=== PATIENT | female | born 1960 | race Caucasian/White ===

== ENCOUNTER 2020-12-16 12:25 | Emergency (ER) | payer BC ==
[~2020-12-16] VITALS: Ht 160 cm; Wt 75.8 kg
[2020-12-16] MEDS ORDERED: OMEP20ER PO (12:36)
[2020-12-16] MEDS ORDERED: LATA.005SO BOTHEYES (12:36)
== END 2020-12-16 17:15 | disposition home or self-care (01) ==
LOC: ER 12:25
DX: T84.021A Dislocation of internal left hip prosthesis, initial encounter (principal); Z88.0 Allergy status to penicillin; Z79.899 Other long term (current) drug therapy; Z96.642 Presence of left artificial hip joint; X50.1XXA Overexertion from prolonged static or awkward postures, initial encounter; Y93.H2 Activity, gardening and landscaping
CPT/HCPCS: 36415; 73501; 73502; J1170; J2704; J3010; J7030

== ENCOUNTER 2023-02-01 18:33 | Observation (INO) | payer BC ==
[~2023-02-01] VITALS: Ht 170.2 cm; Wt 79.0 kg
[~2023-02-01 18:33] MED LIST: IBUP200; LATA.005SO BOTHEYES; OMEP20ER PO
[2023-02-02] VITALS (16 sets, daily range): BP systolic 111–141; BP diastolic 54–74
[2023-02-02 00:12] LABS: BASOPHILS ABSOLUTE AUTO 0.02 K/mm3 (0.00-0.23); BASOPHILS PERCENT AUTO 0 % (0-2); EOSINOPHILS ABSOLUTE AUTO 0.01 K/mm3 (0.00-0.68); EOSINOPHILS PERCENT AUTO 0 % (0-6); Hematocrit 40.1 % (33.0-51.0); Hemoglobin 13.5 g/dL (11.5-16.0); IMMATURE GRAN ABSOLUTE AUTO 0.02 K/mm3 (0.00-0.10); IMMATURE GRAN PERCENT AUTO 0 % (0-1); LYMPHOCYTES ABSOLUTE AUTO 1.32 K/mm3 (0.84-5.20); LYMPHOCYTES PERCENT AUTO 14 % (21-46); MONOCYTES ABSOLUTE AUTO 0.21 K/mm3 (0.16-1.47); MONOCYTES PERCENT AUTO 2 % (4-13); Mean Corpuscular HGB 29.2 pg (26.0-34.0); Mean Corpuscular HGB Conc 33.7 g/dL (31.5-36.5); Mean Corpuscular Volume 87 fL (80-100); Mean Platelet Volume 12.3 fL (9.1-12.4); NEUTROPHILS ABSOLUTE AUTO 7.92 K/mm3 (1.96-9.15); NEUTROPHILS PERCENT AUTO 83 % (41-73); Platelet Count 156 K/mm3 (150-400); RDW Coefficient Variation 13.4 % (11.7-14.2); RDW Standard Deviation 41.8 fL (35.1-46.3); Red Blood Cell Count 4.62 M/mm3 (3.80-5.20)
[2023-02-02 00:32] LABS: Albumin, Blood 3.5 g/dL (3.4-5.0); Albumin/Globulin Ratio 1.1 (0.8-1.8); Bilirubin, Total 0.2 mg/dL (0.1-1.0); Bun/Creatinine Ratio 20.2 (12.0-20.0); Calcium, Blood 8.2 mg/dL (8.5-10.1); Creatinine, Blood 0.79 mg/dL (0.40-1.00); Globulin, Blood 3.1 g/dL (2.2-4.0); Potassium, Blood 3.7 mmol/L (3.5-5.5); Total Protein, Blood 6.6 g/dL (6.4-8.2)
[2023-02-02] MEDS ORDERED: PROG100 (03:00)
[2023-02-02] MEDS ORDERED: LATANOPROST2.5 M3 (03:00)
[2023-02-02 09:07] LABS: BASOPHILS ABSOLUTE AUTO 0.02 K/mm3 (0.00-0.23); BASOPHILS PERCENT AUTO 0 % (0-2); EOSINOPHILS ABSOLUTE AUTO 0.02 K/mm3 (0.00-0.68); EOSINOPHILS PERCENT AUTO 0 % (0-6); Hematocrit 39.6 % (33.0-51.0); Hemoglobin 13.4 g/dL (11.5-16.0); IMMATURE GRAN ABSOLUTE AUTO 0.03 K/mm3 (0.00-0.10); IMMATURE GRAN PERCENT AUTO 0 % (0-1); LYMPHOCYTES ABSOLUTE AUTO 1.88 K/mm3 (0.84-5.20); LYMPHOCYTES PERCENT AUTO 17 % (21-46); MONOCYTES ABSOLUTE AUTO 0.73 K/mm3 (0.16-1.47); MONOCYTES PERCENT AUTO 7 % (4-13); Mean Corpuscular HGB 28.9 pg (26.0-34.0); Mean Corpuscular HGB Conc 33.8 g/dL (31.5-36.5); Mean Corpuscular Volume 85 fL (80-100); Mean Platelet Volume 12.2 fL (9.1-12.4); NEUTROPHILS ABSOLUTE AUTO 8.43 K/mm3 (1.96-9.15); NEUTROPHILS PERCENT AUTO 76 % (41-73); Platelet Count 173 K/mm3 (150-400); RDW Coefficient Variation 13.5 % (11.7-14.2); RDW Standard Deviation 42.3 fL (35.1-46.3); Red Blood Cell Count 4.64 M/mm3 (3.80-5.20); White Blood Cell Count 11.11 K/mm3 (4.00-11.30)
[2023-02-02 09:24] LABS: Albumin, Blood 3.5 g/dL (3.4-5.0); Albumin/Globulin Ratio 1.2 (0.8-1.8); Bilirubin, Total 0.3 mg/dL (0.1-1.0); Bun/Creatinine Ratio 20.9 (12.0-20.0); Calcium, Blood 8.8 mg/dL (8.5-10.1); Creatinine, Blood 0.72 mg/dL (0.40-1.00); Magnesium, Blood 2.1 mg/dL (1.6-2.4); Potassium, Blood 3.8 mmol/L (3.5-5.5); Total Protein, Blood 6.5 g/dL (6.4-8.2)
--- NOTE | 2023-02-02 11:12 | NUR ---
02/02/23 1112 [place] NO PREOP ANTIBIOTICS ORDERED PER DR. JONES. NO PAS PLACED.
--- NOTE | 2023-02-02 16:55 | NUR ---
SHIFT SUMMARY S/P L HIP CLOSED REDUCTION, WBAT, ABDUCTOR PILLOW IN PLACE. PT A&OX4, VSS/RA, ADDIS SMALL AMOUNTS OF H20 - ZOFRAN GIVEN, AMB SBA W/FWW & GB, TO BRP/UP TO CHAIR, PAIN MANAGED, VOIDING. WORKED WITH PHYSICAL THERAPY AND UNABLE TO COMPLETE EVAL R/T PT WEAKNESS WITH RIGHT HIP PAIN. PLAN FOR PT AGAIN TOMORROW. WILL REPORT TO ONCOMING NOC RN.
[2023-02-03 04:16] VITALS: BP 123/68
--- NOTE | 2023-02-03 05:37 | NUR ---
SUMMARY PT MAIN COMPLAINT HAS BEEN RIGHT HIP PAIN. PT STATES PAIN IN LEFT HIP IS NOW MINIMAL. PT HAS BEEN UP TO VOID WITH FWW AND GB. PT PAIN MANAGED WELL PER EMAR. PT DENIES N/V. PT HAS BEEN ABLE TO SLEEP DURING THE NIGHT. CALL LIGHT IN REACH.
[2023-02-03 07:48] VITALS: BP 112/63
[2023-02-03 07:49] VITALS: BP 112/63
--- NOTE | 2023-02-03 07:53 | NUR ---
PT CONSENTED TO ME PROVIDING CARE
[2023-02-03] MEDS ORDERED: Norco 5-325 Ta1 EACH PO (09:45)
[2023-02-03] MEDS ORDERED: GABA100 PO (09:46)
[2023-02-03 12:43] VITALS: BP 117/61
[2023-02-03 14:51] VITALS: BP 130/69
--- NOTE | 2023-02-03 16:35 | NUR ---
DISCHARGE SUMMARY S/P L HIP DISLOCATION REDUCATION AFTER GLF AT HOME, PT A/OX4, ABLE TO MAKE NEEDS KNOWN, TOLERATING PO, AMBULATING FOLLOWING ALL POSTERIOR HIP PRECAUTIONS WELL, VOIDING WELL. DISCUSSED DISCHARGE INFORMATION WITH THE PATIENT AND TWO FAMILY MEMBERS WHICH INCLUDE HER INCLUDING HOME CARE, MEDICATIONS, AND FOLLOW UP APPOINTMENTS WHICH SHE WILL BE FOLLOWING UP WITH HER SURGEON AT [facility]. NO QUESTIONS AT THIS TIME, IV REMOVED PRIOR TO DISCHARGE. NO QUESTIONS AT THIS TIME. PT ESCORTED OUT VIA WC TO PRIVATE AUTO TO GO HOME.
== END 2023-02-03 15:40 | disposition home or self-care (01) ==
LOC: ER 18:33 → SURS 18:34
PROVIDERS: Emergency Medicine; ADMIT Student in an Organized Health Care Education/Training Program
DX: T84.021A Dislocation of internal left hip prosthesis, initial encounter (principal); Y83.8 Other surgical procedures as the cause of abnormal reaction of the patient, or of later complication, without mention of misadventure at the time of the procedure; Z88.0 Allergy status to penicillin; Z88.8 Allergy status to other drugs, medicaments and biological substances; Z79.899 Other long term (current) drug therapy
CPT/HCPCS: 27265; 36415; 73501; 73502; 76000; 80053; 81025; 83735; 85025; 93005; 93010; 96374-59; 96375; 96375-59; 96376; 96376-59; 97116; 97162; 97530; 99285-25; A9270; G0008; G0378; J1170; J1650; J2250; J2405; J2704; J3010; J7030; J7120; Q2036

== ENCOUNTER 2023-09-20 13:32 | Emergency (ER) | payer BC ==
[~2023-09-20] VITALS: Ht 160 cm; Wt 76.7 kg
[~2023-09-20 13:32] MED LIST changes: +GABA100 PO; +LATANOPROST2.5 M3; +Norco 5-325 Ta1 EACH PO; +PROG100
[2023-09-20 14:26] LABS: BASOPHILS ABSOLUTE AUTO 0.03 K/mm3 (0.00-0.23); BASOPHILS PERCENT AUTO 0 % (0-2); EOSINOPHILS ABSOLUTE AUTO 0.04 K/mm3 (0.00-0.68); EOSINOPHILS PERCENT AUTO 0 % (0-6); Hematocrit 38.8 % (33.0-51.0); Hemoglobin 13.2 g/dL (11.5-16.0); IMMATURE GRAN ABSOLUTE AUTO 0.07 K/mm3 (0.00-0.10); IMMATURE GRAN PERCENT AUTO 1 % (0-1); LYMPHOCYTES PERCENT AUTO 8 % (21-46); MONOCYTES ABSOLUTE AUTO 0.77 K/mm3 (0.16-1.47); MONOCYTES PERCENT AUTO 6 % (4-13); Mean Corpuscular Volume 82 fL (80-100); Mean Platelet Volume 12.1 fL (9.1-12.4); NEUTROPHILS ABSOLUTE AUTO 10.82 K/mm3 (1.96-9.15); NEUTROPHILS PERCENT AUTO 85 % (41-73); Platelet Count 201 K/mm3 (150-400); Red Blood Cell Count 4.72 M/mm3 (3.80-5.20); White Blood Cell Count 12.73 K/mm3 (4.00-11.30)
[2023-09-20 14:37] LABS: Albumin, Blood 2.7 g/dL (3.4-5.0); Albumin/Globulin Ratio 0.7 (0.8-1.8); Bilirubin, Total 0.7 mg/dL (0.1-1.0); Bun/Creatinine Ratio 17.3 (12.0-20.0); Calcium, Blood 9.1 mg/dL (8.5-10.1); Creatinine, Blood 0.64 mg/dL (0.40-1.00); Globulin, Blood 3.9 g/dL (2.2-4.0); Potassium, Blood 3.5 mmol/L (3.5-5.5); Total Protein, Blood 6.6 g/dL (6.4-8.2)
[2023-09-20] MEDS ORDERED: ERGO400 PO (17:23)
[2023-09-20] MEDS ORDERED: FISH OIL 1,0001 EA10 PO (17:23)
[2023-09-20] MEDS ORDERED: CeFAZolin Sodium 2,000 MG VIAL IM ONE (17:35)
[2023-09-20] MEDS ORDERED: CEPH250A PO (18:06)
[2023-09-20] MEDS ORDERED: CeFAZolin Sodium 2,000 MG in NS 100 ML IV ONE (18:10)
[2023-09-20] MEDS ORDERED: Acetaminophen 500 MG Tab PO ONE (18:15)
[2023-09-20 19:00] VITALS: BP 105/50
== END 2023-09-20 19:15 | disposition home or self-care (01) ==
LOC: ER 13:32
PROVIDERS: Nurse Practitioner
DX: R21 Rash and other nonspecific skin eruption (principal); Z79.899 Other long term (current) drug therapy
CPT/HCPCS: 80053; 85025; 85651; 86141; 87070; 87205; 96365; 99283-25; A9270; J0690

== ENCOUNTER 2023-10-14 12:23 | Emergency (ER) | payer BC ==
[~2023-10-14] VITALS: Ht 160 cm; Wt 79.4 kg
[~2023-10-14 12:23] MED LIST changes: +CEPH250A PO; +ERGO400 PO; +FISH OIL 1,0001 EA10 PO
[2023-10-14 13:03] LABS: BASOPHILS ABSOLUTE AUTO 0.04 K/mm3 (0.00-0.23); BASOPHILS PERCENT AUTO 0 % (0-2); EOSINOPHILS ABSOLUTE AUTO 0.17 K/mm3 (0.00-0.68); EOSINOPHILS PERCENT AUTO 2 % (0-6); Hematocrit 37.7 % (33.0-51.0); Hemoglobin 12.8 g/dL (11.5-16.0); IMMATURE GRAN ABSOLUTE AUTO 0.08 K/mm3 (0.00-0.10); IMMATURE GRAN PERCENT AUTO 1 % (0-1); LYMPHOCYTES ABSOLUTE AUTO 1.46 K/mm3 (0.84-5.20); LYMPHOCYTES PERCENT AUTO 13 % (21-46); MONOCYTES ABSOLUTE AUTO 0.91 K/mm3 (0.16-1.47); MONOCYTES PERCENT AUTO 8 % (4-13); Mean Corpuscular HGB 28.5 pg (26.0-34.0); Mean Corpuscular Volume 84 fL (80-100); Mean Platelet Volume 11.4 fL (9.1-12.4); NEUTROPHILS ABSOLUTE AUTO 9.01 K/mm3 (1.96-9.15); NEUTROPHILS PERCENT AUTO 77 % (41-73); Platelet Count 256 K/mm3 (150-400); RDW Coefficient Variation 15.5 % (11.7-14.2); RDW Standard Deviation 46.8 fL (35.1-46.3); Red Blood Cell Count 4.49 M/mm3 (3.80-5.20); White Blood Cell Count 11.67 K/mm3 (4.00-11.30)
[2023-10-14 13:20] LABS: Albumin, Blood 2.3 g/dL (3.4-5.0); Albumin/Globulin Ratio 0.6 (0.8-1.8); Bilirubin, Total 0.5 mg/dL (0.1-1.0); Bun/Creatinine Ratio 17.8 (12.0-20.0); C-REACTIVE PROTEIN, EXT RANGE 17.8 mg/dL (0.000-0.300); Creatinine, Blood 0.79 mg/dL (0.40-1.00); Potassium, Blood 4.1 mmol/L (3.5-5.5); Total Protein, Blood 6.3 g/dL (6.4-8.2)
[2023-10-14 16:03] VITALS: BP 125/76
== END 2023-10-14 16:10 | disposition home or self-care (01) ==
LOC: ER 12:23
PROVIDERS: Physician Assistant
DX: B34.1 Enterovirus infection, unspecified (principal); L03.114 Cellulitis of left upper limb; L03.113 Cellulitis of right upper limb; L40.9 Psoriasis, unspecified; Z79.631 Long term (current) use of antimetabolite agent; Z79.899 Other long term (current) drug therapy
CPT/HCPCS: 80053; 85025; 86140; 99283

== ENCOUNTER 2023-10-23 13:50 | Emergency (ER) | payer BC ==
[~2023-10-23] VITALS: Ht 160 cm; Wt 79.4 kg
[2023-10-23 14:14] LABS: BASOPHILS ABSOLUTE AUTO 0.05 K/mm3 (0.00-0.23); BASOPHILS PERCENT AUTO 0 % (0-2); EOSINOPHILS ABSOLUTE AUTO 0.15 K/mm3 (0.00-0.68); EOSINOPHILS PERCENT AUTO 1 % (0-6); Hematocrit 36.3 % (33.0-51.0); IMMATURE GRAN ABSOLUTE AUTO 0.15 K/mm3 (0.00-0.10); IMMATURE GRAN PERCENT AUTO 1 % (0-1); LYMPHOCYTES ABSOLUTE AUTO 1.33 K/mm3 (0.84-5.20); LYMPHOCYTES PERCENT AUTO 12 % (21-46); MONOCYTES ABSOLUTE AUTO 0.57 K/mm3 (0.16-1.47); MONOCYTES PERCENT AUTO 5 % (4-13); Mean Corpuscular HGB 27.8 pg (26.0-34.0); Mean Corpuscular HGB Conc 33.1 g/dL (31.5-36.5); Mean Corpuscular Volume 84 fL (80-100); Mean Platelet Volume 10.5 fL (9.1-12.4); NEUTROPHILS ABSOLUTE AUTO 9.24 K/mm3 (1.96-9.15); NEUTROPHILS PERCENT AUTO 80 % (41-73); Platelet Count 467 K/mm3 (150-400); RDW Coefficient Variation 15.2 % (11.7-14.2); RDW Standard Deviation 46.5 fL (35.1-46.3); Red Blood Cell Count 4.31 M/mm3 (3.80-5.20); White Blood Cell Count 11.49 K/mm3 (4.00-11.30)
[2023-10-23 14:38] LABS: Albumin, Blood 2.6 g/dL (3.4-5.0); Albumin/Globulin Ratio 0.6 (0.8-1.8); Bilirubin, Total 0.4 mg/dL (0.1-1.0); Bun/Creatinine Ratio 21.2 (12.0-20.0); Calcium, Blood 9.5 mg/dL (8.5-10.1); Creatinine, Blood 0.71 mg/dL (0.40-1.00); Potassium, Blood 4.1 mmol/L (3.5-5.5); Total Protein, Blood 6.6 g/dL (6.4-8.2)
[2023-10-23] MEDS ORDERED: METHOTREXATE2.510 PO (16:40)
[2023-10-23] MEDS ORDERED: FOLI1 PO (16:41)
[2023-10-23] MEDS ORDERED: ACET500 PO (16:42)
[2023-10-23 17:03] LABS: Source, Urine Clean Catch
[2023-10-23 17:05] LABS: Appearance, Urine Clear (Clear); Bilirubin, Urine Neg (Neg); Blood, Urine 1+ (Neg); Color, Urine Yellow (P-Yellow); Glucose Qualitative, Urine Neg (Neg); Ketones, Urine 3+ (Neg); Leukocyte Esterase, Urine 1+ (Neg); Nitrite, Urine Neg (Neg); Protein, Urine 1+ (Neg); Specific Gravity, Urine 1.025 (1.003-1.022); Urobilinogen, Urine NORM (Normal)
[2023-10-23 17:12] LABS: Mucus Heavy (0-Heavy)
[2023-10-23 17:13] LABS: Bacteria Few /hpf; Squamous Epithelial Cells Mod /hpf (Few)
[2023-10-23] MEDS ORDERED: Ketorolac Tromethamine 15mg Vial IV ONE (18:00)
[2023-10-23] MEDS ORDERED: Lasix20 MG PO (19:23)
[2023-10-23] MEDS ORDERED: Furosemide 10 MG / ML 2ML Vial IV ONE (19:25)
[2023-10-23 19:32] VITALS: BP 133/68
== END 2023-10-23 19:45 | disposition home or self-care (01) ==
LOC: ER 13:50
PROVIDERS: Physician Assistant
DX: R60.0 Localized edema (principal); E88.09 Other disorders of plasma-protein metabolism, not elsewhere classified; T45.1X5A Adverse effect of antineoplastic and immunosuppressive drugs, initial encounter; L51.9 Erythema multiforme, unspecified; Z79.899 Other long term (current) drug therapy; Z88.0 Allergy status to penicillin; Z88.1 Allergy status to other antibiotic agents
CPT/HCPCS: 80053; 81001; 83880; 84134; 84145; 85025; 86140; 87086; 96374; 96375; 99283-25; J1885; J1940

== ENCOUNTER → 2024-02-11 | Outpatient (CLI) | payer BC ==
[~2024-02-11] MED LIST changes: +ACET500 PO; +FOLI1 PO; +Lasix20 MG PO; +METHOTREXATE2.510 PO
[2024-02-11 12:32] LABS: Bacterial Vaginosis PCR Negative (NEGATIVE); Candida Group, PCR NOT DETECTED (NOT DETECT); Candida glabrata-krusei, PCR NOT DETECTED (NOT DETECT)
== END ==
LOC: LAB SHORT 09:05 → LAB 09:05
PROVIDERS: Advanced Practice Midwife
DX: Z01.419 Encounter for gynecological examination (general) (routine) without abnormal findings (principal); N76.0 Acute vaginitis
CPT/HCPCS: 87481; 87661; 87801